=== PATIENT | female | born 1975 | race Caucasian/White ===

== ENCOUNTER 2019-07-03 07:51 | Emergency (ER) | payer OTHER | END 2019-07-03 08:50 | disposition home or self-care (01) | LOC: BURERS 07:51 | DX: J10.1 Influenza due to other identified influenza virus with other respiratory manifestations (principal); G43.909 Migraine, unspecified, not intractable, without status migrainosus; F41.9 Anxiety disorder, unspecified; F32.9 Major depressive disorder, single episode, unspecified | CPT/HCPCS: 87804; 99283 ==

== ENCOUNTER 2021-02-08 10:04 | Emergency (ER) | payer OTHER ==
[2021-02-08] MEDS ORDERED: Cyclobenzaprine 10 MG TAB ONE (10:25)
[2021-02-08] MEDS ORDERED: Ketorolac Tromethamine 60 MG/2 ML VIAL ONE (10:25)
== END 2021-02-08 11:15 | disposition home or self-care (01) ==
LOC: BURERS 10:04
DX: S39.012A Strain of muscle, fascia and tendon of lower back, initial encounter (principal); R00.0 Tachycardia, unspecified; E78.5 Hyperlipidemia, unspecified; E78.00 Pure hypercholesterolemia, unspecified; Z79.899 Other long term (current) drug therapy; X50.9XXA Other and unspecified overexertion or strenuous movements or postures, initial encounter
CPT/HCPCS: 96372; 99283; J1885